=== PATIENT | male | born 1965 | race African-American/Black ===

== ENCOUNTER 2019-12-22 10:26 | Emergency (ER) | payer MEDICAID ==
[~2019-12-22] VITALS: Ht 175.3 cm; Wt 112.0 kg
[2019-12-22] MEDS ORDERED: IBUPROFEN 600MG TABLET PO STA (11:31)
[2019-12-22 12:02] LABS: HEMATOCRIT. 44.6 % (42.0-52.0); HEMOGLOBIN. 15.2 g/dL (14.0-18.0); MEAN CORPUSCULAR HEMOGLOBIN 31.6 pg (28.0-32.0); MEAN CORPUSCULAR VOLUME 92.7 fL (80.0-94.0); MEAN PLATELET VOLUME 6.9 fl (7.4-10.4); PLATELET 427 x1000/uL (130-400); RED BLOOD CELL COUNT 4.81 mill/uL (4.7-6.1); RED CELL DISTRIBUTION WIDTH 15.6 % (11.6-14.6)
[2019-12-22 12:08] LABS: CHLORIDE 107 mEq/L (98-107)
[2019-12-22] MEDS ORDERED: MAGNESIUM CITRATE 300ML SOLUTION PO ONE (13:15)
[2019-12-22 13:33] VITALS: BP 115/74
[2019-12-22 14:23] LABS: PLATELET ESTIMATE INCREASED
== END 2019-12-22 13:36 | disposition home or self-care (01) ==
LOC: ER 10:50
DX: M79.605 Pain in left leg (principal); K59.00 Constipation, unspecified; E11.9 Type 2 diabetes mellitus without complications; I10 Essential (primary) hypertension
CPT/HCPCS: 36415; 71045; 80053; 83880; 85025; 93970; 99285

== ENCOUNTER 2020-01-07 09:46 | Emergency (ER) | payer MEDICAID ==
[~2020-01-07] VITALS: Ht 175.3 cm; Wt 126.0 kg
[2020-01-07] MEDS ORDERED: ACETAMINOPHEN 325MG TABLET PO ONE (11:00)
[2020-01-07] MEDS ORDERED: MORPHINE SULFATE 4 MG/ML CPJ (NOT FOR IM USE) IV ONE (11:00)
[2020-01-07] MEDS ORDERED: ONDANSETRON HCL 4MG/2ML INJ IV ONE (11:00)
[2020-01-07 11:28] LABS: BASOPHILS % 0.3 % (0.0-2.0); EOSINOPHILS % 0.3 % (0.0-5.0); HEMATOCRIT. 44.5 % (42.0-52.0); HEMOGLOBIN. 14.9 g/dL (14.0-18.0); LYMPHOCYTES % 31.4 % (20.0-50.0); MEAN CORPUSCULAR HEMOGLOBIN 30.7 pg (28.0-32.0); MEAN CORPUSCULAR VOLUME 91.7 fL (80.0-94.0); MEAN PLATELET VOLUME 7.7 fl (7.4-10.4); PLATELET 438 x1000/uL (130-400); RED BLOOD CELL COUNT 4.85 mill/uL (4.7-6.1); RED CELL DISTRIBUTION WIDTH 15.6 % (11.6-14.6)
[2020-01-07 11:29] LABS: INR 1.1
[2020-01-07 11:31] LABS: CHLORIDE 100 mEq/L (98-107)
[2020-01-07 11:47] LABS: CLARITY URINE CLEAR (CLEAR); COLOR URINE YELLOW (YELLOW); KETONES URINE NEGATIVE (NEGATIVE); LEUKOCYTE ESTERASE URINE NEGATIVE (NEGATIVE); NITRITE URINE NEGATIVE (NEGATIVE); OCCULT BLOOD URINE TRACE (NEGATIVE); PROTEIN URINE 2+ (NEGATIVE); SPECIFIC GRAVITY URINE 1.007 (1.005-1.030); UROBILINOGEN URINE 0.2 E.U./dL (0.2-1.0)
[2020-01-07] MEDS ORDERED: HEPARIN 5000 UNITS/ML VIAL IV SCH (12:00)
[2020-01-07] MEDS ORDERED: HEPARIN 25,000 UNITS PREMIX 500 ML IV PRN (12:00)
[2020-01-07] MEDS ORDERED: HEPARIN 5000 UNITS/ML VIAL IV PRN ×4 (12:00→12:21)
[2020-01-07] MEDS ORDERED: HEPARIN 5000 UNITS/ML VIAL IV NR (12:30)
[2020-01-07] MEDS ORDERED: HYDROMORPHONE HCL/PF 2MG/ML CPJ IV ONE (14:15)
[2020-01-07] MEDS ORDERED: IOHEXOL-350 100 ML BOTTLE ONE (17:22)
[2020-01-07] MEDS ORDERED: FENTANYL CITRATE/PF 50MCG/ML 2ML VIAL IV ONE (18:30)
[2020-01-07] MEDS ORDERED: LORAZEPAM 2MG/ML CPJ IV ONE (20:15)
[2020-01-08] MEDS ORDERED: LORAZEPAM 1MG TABLET PO ONE (00:45)
[2020-01-08] MEDS ORDERED: HYDROMORPHONE HCL/PF 2MG/ML CPJ IV ONE (00:45)
[2020-01-08 05:24] VITALS: BP 154/86
== END 2020-01-08 06:18 | disposition short-term general hospital (02) ==
LOC: ER 09:46
DX: I74.3 Embolism and thrombosis of arteries of the lower extremities (principal); E11.9 Type 2 diabetes mellitus without complications; I10 Essential (primary) hypertension
CPT/HCPCS: 36415; 72191; 73706; 80053; 81003; 82962; 83690; 85025; 85610; 85730; 93922; 93970; 96374; 96375; 96376; 99291; J1170; J1644; J2060; J2270; J2405; J3010; Q9967